=== PATIENT | female | born 1940 | race Caucasian/White ===

== ENCOUNTER 2017-03-12 02:12 | Inpatient (IN) | payer OTHER ==
[2017-03-12] MEDS ORDERED: NS 1,000 ML IV ONE (02:44)
--- NOTE | 2017-03-12 03:24 | CPEKG ---
Heart Rate: 100 RR Interval: 600 P-R Interval: 184 QRSD Interval: 110 QT Interval: 360 QTC Interval: 465 P [place]: 50 QRS [place]: -44 T Wave [place]: 82 EKG Severity - ABNORMAL ECG - EKG Impression: SINUS TACHYCARDIA EKG Impression: LEFT ANTERIOR FASCICULAR BLOCK Electronically Signed By: Aparna Rock 13-Mar-2017 06:20:06
[2017-03-12 03:28] LABS: % IMMATURE GRANULYOCYTES 0.6 % (0.0-1.1); ABSOLUTE IMMATURE GRANULOCYTES 0.07 10^3/uL (0.00-0.10); ADD DIFF? NO; ADD MORPH? NO; ADD SCAN? NO; ATYPICAL LYMPHOCYTE FLAG 0 (0-99); FRAGMENT RBC FLAG 0 (0-99); HEMATOCRIT 35.4 % (38.0-47.0); HEMOGLOBIN 11.5 g/dL (12.6-16.3); LEFT SHIFT FLG 0 (0-99); LIPEMIA HEMOLYSIS FLAG 80 (0-99); MEAN CELL HEMOGLOBIN 31.4 pg (27.9-34.1); MEAN CELL HEMOGLOBIN CONCENTR. 32.5 g/dL (32.4-36.7); MEAN CELL VOLUME 96.7 fL (81.5-99.8); MEAN PLATELET VOLUME 10.7 fL (8.7-11.7); PLATELET CLUMPS FLAG 20 (0-99); PLATELET COUNT 201 10^3/uL (150-400); RED BLOOD CELL COUNT 3.66 10^6/uL (4.18-5.33); RED CELL DISTRIBUTION WIDTH 14.5 % (11.5-15.2)
[2017-03-12 03:41] LABS: ALANINE AMINOTRANSFERASE 27 IU/L (9-52); ALBUMIN 3.6 g/dL (3.5-5.0); ALKALINE PHOSPHATASE 44 IU/L (38-126); ANION GAP 15 mEq/L (8-16); ASPARTATE AMINOTRANSFERASE 22 IU/L (14-46); BILIRUBIN,TOTAL 0.7 mg/dL (0.1-1.4); BILIRUBIN-CONJUGATED 0.4 mg/dL (0.0-0.5); BILIRUBIN-UNCONJUGATED 0.3 mg/dL (0.0-1.1); CALCIUM 9.6 mg/dL (8.5-10.4); CARBON DIOXIDE 19 mEq/l (22-31); CHLORIDE 108 mEq/L (97-110); CREATININE 1.4 mg/dL (0.6-1.0); GLOMERULAR FILTRATION RATE 37; GLUCOSE 219 mg/dL (70-100); SODIUM 142 mEq/L (134-144); TOTAL PROTEIN 5.8 g/dL (6.3-8.2)
[2017-03-12 04:17] LABS: COLOR YELLOW; LEUKOCYTE ESTERASE,URINE 3+ (NEGATIVE); NITRITE,URINE NEGATIVE (NEGATIVE)
[2017-03-12 04:25] LABS: BACTERIA TRACE /hpf (NONE SEEN); MUCUS TRACE /lpf (NONE-1+); RBC,URINE 50-182 /hpf (0-3); WBC,URINE 50-182 /hpf (0-3)
[2017-03-12] MEDS ORDERED: ONDANSETRON 4 MG/2 ML VIAL IVP PRN (05:00)
[2017-03-12] MEDS ORDERED: ACETAMINOPHEN 325 MG TAB PO PRN (05:00)
[2017-03-12] MEDS ORDERED: ONDANSETRON DISINTEGRATING 4 MG TAB PO PRN (05:00)
--- NOTE | 2017-03-12 05:11 | PDGENHP ---
History and Physical - Chief Complaint Acute weakness - History of Present Illness PCP: Dr. Marin Primary fleet operations manager: Dr. Hyde Primary urologist: Dr. Chapa HPI: 76 yo F p/w acute weakness characterized as generalized w/ associated inability to ambulate, associated w/ ongoing hematuria and tremulousness ( exacerbated by standing). She reports onset of symptoms on the evening prior to presentation, following a lengthy trip down to [facility] to see her PCP. She got stuck in [place] hour traffic on her return, and did not have adequate PO intake of fluids. She ate dinner, began having difficulty ambulating, and went to bed. When she awoke in the middle of the night and attempted to stand to get to the bathroom, she reports her strength was so diminished that she could barely walk, and she called EMS. She has been off of Abx (unsure which kind, was taking bid-tid PO) for approx 6 days, and, despite adhering to the instructions, she has continued to experience macroscopic hematuria, but no dysuria/nausea/diarrhea. Otherwise, no other medication changes. History Information - Allergies/Home Medication List Allergies/Adverse Reactions: No Known Allergies Allergy (Unverified 03/12/17 02:47) I have personally reviewed and updated: family history, medical history, social history, surgical history - Past Medical History atrial fibrillation (paroxysmal), diabetes type 2, hypertension Additional medical history: hypothyroidism. depression. severe . CKD stage III w/ baseline CR1.2-1.4. nephrolithiasis. recent UTI - Surgical History Additional surgical history: appy. perc neph. SBO - Family History Additional family history: no recent sick family contacts - Social History Smoking Status: Former smoker Alcohol Use: None Drug Use: None Additional social history: lives in [place] Review of Systems Review of Systems: Constitutional: Reports: weakness Genitourinary: Reports: hematuria Physical Exam Physical Exam: Temp Pulse Resp BP Pulse Ox 36.8 C 90 18 107/74 95 03/12/17 02:22 03/12/17 04:00 03/12/17 04:00 03/12/17 04:00 03/12/17 04:00 Constitutional: no apparent distress, not in pain, other (elderly appearing), No uncomfortable Eyes: PERRL, anicteric sclera, EOMI Ears, Nose, Mouth, Throat: moist mucous membranes, hearing normal, ears appear normal, no oral mucosal ulcers Cardiovascular: systolic murmur (III/ at RSB), No irregularly irregular, No tachycardia, No edema Respiratory: no respiratory distress, no rales or rhonchi, clear to auscultation Gastrointestinal: normoactive bowel sounds, soft, non-tender abdomen, no palpable masses, No distension Genitourinary: no bladder fullness, no bladder tenderness, other (no CVA tenderness) Skin: warm, normal color, no rashes or abrasions, no fluctuance, no induration, No mottled Neurologic: AAOx3, sensation intact bilaterally, No weakness (motor 5/5 bilat UE /LE) Psychiatric: interacting appropriately, not anxious, flat affect, No agitated Lab Data & Imaging Review 03/12/17 03:15 03/12/17 03:15 WBC 12.28 10^3/uL (3.80-9.50) H 03/12/17 03:15 RBC 3.66 10^6/uL (4.18-5.33) L 03/12/17 03:15 Hgb 11.5 g/dL (12.6-16.3) L 03/12/17 03:15 Hct 35.4 % (38.0-47.0) L 03/12/17 03:15 MCV 96.7 fL (81.5-99.8) 03/12/17 03:15 MCH 31.4 pg (27.9-34.1) 03/12/17 03:15 MCHC 32.5 g/dL (32.4-36.7) 03/12/17 03:15 RDW 14.5 % (11.5-15.2) 03/12/17 03:15 Plt Count 201 10^3/uL (150-400) 03/12/17 03:15 MPV 10.7 fL (8.7-11.7) 03/12/17 03:15 Neut % (Auto) 91.4 % (39.3-74.2) H 03/12/17 03:15 Lymph % (Auto) 3.2 % (15.0-45.0) L 03/12/17 03:15 [place] % (Auto) 3.7 % (4.5-13.0) L 03/12/17 03:15 Eos % (Auto) 0.6 % (0.6-7.6) 03/12/17 03:15 Baso % (Auto) 0.5 % (0.3-1.7) 03/12/17 03:15 Nucleat RBC Rel Count 0.0 % (0.0-0.2) 03/12/17 03:15 Absolute Neuts (auto) 11.23 10^3/uL (1.70-6.50) H 03/12/17 03:15 Absolute Lymphs (auto) 0.39 10^3/uL (1.00-3.00) L 03/12/17 03:15 Absolute Monos (auto) 0.46 10^3/uL (0.30-0.80) 03/12/17 03:15 Absolute Eos (auto) 0.07 10^3/uL (0.03-0.40) 03/12/17 03:15 Absolute Basos (auto) 0.06 10^3/uL (0.02-0.10) 03/12/17 03:15 Absolute Nucleated RBC 0.00 10^3/uL (0-0.01) 03/12/17 03:15 Immature Gran % 0.6 % (0.0-1.1) 03/12/17 03:15 Immature Gran # 0.07 10^3/uL (0.00-0.10) 03/12/17 03:15 Sodium 142 mEq/L (134-144) 03/12/17 03:15 Potassium 4.0 mEq/L (3.5-5.2) 03/12/17 03:15 Chloride 108 mEq/L (97-110) 03/12/17 03:15 Carbon Dioxide 19 mEq/l (22-31) L 03/12/17 03:15 Anion Gap 15 mEq/L (8-16) 03/12/17 03:15 BUN 55 mg/dL (7-23) H 03/12/17 03:15 Creatinine 1.4 mg/dL (0.6-1.0) H 03/12/17 03:15 Estimated GFR 37 03/12/17 03:15 Glucose 219 mg/dL (70-100) H 03/12/17 03:15 Calcium 9.6 mg/dL (8.5-10.4) 03/12/17 03:15 Total Bilirubin 0.7 mg/dL (0.1-1.4) 03/12/17 03:15 Conjugated Bilirubin 0.4 mg/dL (0.0-0.5) 03/12/17 03:15 Unconjugated Bilirubin 0.3 mg/dL (0.0-1.1) 03/12/17 03:15 AST 22 IU/L (14-46) 03/12/17 03:15 ALT 27 IU/L (9-52) 03/12/17 03:15 Alkaline Phosphatase 44 IU/L (38-126) 03/12/17 03:15 Troponin I 0.030 ng/mL (0.000-0.034) 03/12/17 03:15 Total Protein 5.8 g/dL (6.3-8.2) L 03/12/17 03:15 Albumin 3.6 g/dL (3.5-5.0) 03/12/17 03:15 Urine Color YELLOW 03/12/17 04:00 Urine Appearance MODERATELY TURBID 03/12/17 04:00 Urine pH 5.0 (5.0-7.5) 03/12/17 04:00 Ur Specific [place] 1.012 (1.002-1.030) 03/12/17 04:00 Urine Protein 1+ (NEGATIVE) H 03/12/17 04:00 Urine Ketones NEGATIVE (NEGATIVE) 03/12/17 04:00 Urine Blood 3+ (NEGATIVE) H 03/12/17 04:00 Urine Nitrate NEGATIVE (NEGATIVE) 03/12/17 04:00 Urine Bilirubin NEGATIVE (NEGATIVE) 03/12/17 04:00 Urine Urobilinogen NEGATIVE EU (0.2-1.0) 03/12/17 04:00 Ur Leukocyte Esterase 3+ (NEGATIVE) H 03/12/17 04:00 Urine RBC 50-182 /hpf (0-3) H 03/12/17 04:00 Urine WBC 50-182 /hpf (0-3) H 03/12/17 04:00 Ur Epithelial Cells TRACE /lpf (NONE-1+) 03/12/17 04:00 Urine Bacteria TRACE /hpf (NONE SEEN) H 03/12/17 04:00 Urine Mucus TRACE /lpf (NONE-1+) 03/12/17 04:00 Urine Glucose NEGATIVE (NEGATIVE) 03/12/17 04:00 Visualized and Interpreted EKG results: Yes EKG Interpretation: Positive for: other (sinus tach w/ LAFB) Assessment & Plan Assessment: 76 yo F p/w generalized weakness in setting of UTI, PIPER on CKD Plan: 1. UTI. Acute, new problem, further w/u indicated. Reviewed outside records, including recent 02/26/17 micro w/ fluoroquinalone/bactrim/augmentin resistant E. coli, positive UA and leukocytosis and hematuria, probably persistent and incompletely treated recently - order outside records (UCx from Dr. Chapa) - send UCx, BCx - repeat CBC at noon - d/w Dr. Rock, we both agree that CTX initial tx, gauge response, continue 2. PIPER on CKD stage III. Evidenced by elevated BUN 55, likely 2/2 hypovolemia in setting of infxn, likely contributing to gen weakness - cont NS 150/hr, repeat Cr at noon 3. Severe . Chronic, no signs of volume overload 4. Paroxysmal Afib. Reviewed outside records (DC summary by Dr. Lenore Kulkarni , reports patient is on coreg and eliquis), continue Rx, monitor for RVR on tele 5. Metabolic acidosis. Acute, suspect 2/2 combination of PIPER, CKD, and hypovolemia, give NS and repeat labs 6. DM2. Chronic, hold metformin/sulfonureas until repeat labs at noon, place on ISS Diet. Regular per patient request PPx. High risk, on eliquis Code. Full, MDPOA is Leanne Smitho. ADD 03/13, pending stability of above, patient requiring PT/OT evals, may require SNF if unable to safely ambulate/complete ADLs
[2017-03-12] MEDS: NS 1,000 ML IV SCH ×2 (06:47→16:45)
[2017-03-12] MEDS: CARVEDILOL 25 MG TAB PO SCH ×3 (06:51→19:00)
[2017-03-12] MEDS: APIXABAN 5 MG TAB PO SCH ×3 (06:51→19:49)
--- NOTE | 2017-03-12 07:51 | EDPHY ---
H & P Stated Complaint: Weak, unable to stand. Time Seen by Provider: 03/12/17 02:46 HPI/ROS: HPI The patient presents with weakness which she feels mostly in both of her legs which has been getting progressively worse over the last 2 days to the point now that she is having difficulty walking because of the weakness. At baseline , she uses a walker and can walk about 1 block at a time. She is brought in by ambulance today after she was attempting to sit in her arm chair and she slid to the floor with her legs giving out under her. Today, she went to a doctor's appointment and was in the car for a while, she feels this exacerbated her weakness. Tonight, she got up to use the bathroom when she was going back to her arm chair where she sleeps she slid and fell. She did not hit her head. She denies any pain. She does not have any bowel or bladder incontinence. She has history of similar in September of this year likely related to deconditioning for an admission for kidney stones. She did go to some sort of assisted living facility but has been at her own house since November.. REVIEW OF SYSTEMS Constitutional: No fever, no chills. Eyes: No discharge. ENT: No sore throat. Cardiovascular: No chest pain, no palpitations. Respiratory: No cough, no shortness of breath. Gastrointestinal: No abdominal pain, no vomiting. Genitourinary: No hematuria. Musculoskeletal: No back pain. Skin: No rashes. Neurological: No headache. PMHx: Moderate to severe aortic stenosis, paroxysmal atrial fibrillation, history of kidney stones, hypertension, hypothyroidism, diabetes Soc Hx: Lives at home by herself, neighbors do check in on her PHYSICAL General Appearance: Alert, no distress Eyes: Pupils equal and round no pallor or injection ENT, Mouth: Mucous membranes dry Respiratory: There are no retractions, lungs are clear to auscultation Cardiovascular: Regular rate and rhythm, holosystolic murmur Gastrointestinal: Abdomen is soft and non-tender, no masses, bowel sounds normal Neurological: A&O, 5/5 strength of upper and lower extremities which is symmetric, sensation is intact to light touch Skin: Warm and dry, no rashes Musculoskeletal: Neck is supple non tender Extremities: symmetrical, full range of motion Psychiatric: Patient is oriented X 3, there is no agitation Source: Patient, EMS Exam Limitations: No limitations - Personal History Current Tetanus/Diphtheria Vaccine: Unsure Current Tetanus Diphtheria and Acellular Pertussis (TDAP): Unsure - Medical/Surgical History Hx Asthma: No Hx Chronic Respiratory Disease: No Hx Diabetes: No Hx Cardiac Disease: No Hx Renal Disease: No Hx Cirrhosis: No Hx Alcoholism: No Hx HIV/AIDS: No Hx Splenectomy or Spleen Trauma: No Other PMH: Hyperlipidemia, Diabetes 2, kidney stone sx. - Social History Smoking Status: Former smoker Constitutional: Initial Vital Signs Temperature (C) 36.8 C 03/12/17 02:22 Heart Rate 100 03/12/17 02:22 Respiratory Rate 18 03/12/17 02:22 Blood Pressure 113/54 L 03/12/17 02:22 O2 Sat (%) 92 03/12/17 02:22 O2 Delivery Mode Nasal Cannula O2 (L/minute) 2 Allergies/Adverse Reactions: No Known Allergies Allergy (Unverified 03/12/17 02:47) Medical Decision Making - Diagnostics EKG Interpretation: EKG: Complete interpretation has been separately recorded in the [facility] archive. Summary impression: Heart rate of 100 with left anterior fascicular block Differential Diagnosis: This is a 76-year-old female with past medical history including aortic stenosis , proximal atrial fibrillation, kidney stones, hypertension, hypothyroidism who presents brought in by ambulance after a fall which she attributes to weakness which she feels in both of her legs. On exam, she is generally well-appearing, vital signs show slightly low blood pressures, mucous membranes are dry, her strength is full on exam. Differential diagnosis includes electrolyte disturbance, dehydration, anemia, deconditioning, less likely CVA given her symptoms are bilateral. In the emergency department, patient was given 1 L of IV fluid for presumed volume depletion. Labs were checked and did reveal elevated BUN and creatinine. UA shows possible urinary tract infection. When mentioned this to the patient, she says she has an appointment with Urology today because she was concerned that she may have a urinary tract infection. She was given a dose of ceftriaxone for this. The case was discussed with the hospitalist Dr. Bird Asher who will admit the patient. - Data Points Laboratory Results: Laboratory Results 03/12/17 03:15 03/12/17 03:15 03/12/17 03/12/17 03/12/17 04:00 03:15 03:15 WBC RBC Hgb Hct MCV MCH MCHC RDW Plt Count MPV Neut % (Auto) Lymph % (Auto) [place] % (Auto) Eos % (Auto) Baso % (Auto) Nucleat RBC Rel Count Absolute Neuts (auto) Absolute Lymphs (auto) Absolute Monos (auto) Absolute Eos (auto) Absolute Basos (auto) Absolute Nucleated RBC Immature Gran % Immature Gran # Sodium 142 mEq/L mEq/L (134-144) Potassium 4.0 mEq/L mEq/L (3.5-5.2) Chloride 108 mEq/L mEq/L (97-110) Carbon Dioxide 19 mEq/l L mEq/l (22-31) Anion Gap 15 mEq/L mEq/L (8-16) BUN 55 mg/dL H mg/dL (7-23) Creatinine 1.4 mg/dL H mg/dL (0.6-1.0) Estimated GFR 37 Glucose 219 mg/dL H mg/dL (70-100) Calcium 9.6 mg/dL mg/dL (8.5-10.4) Total Bilirubin 0.7 mg/dL mg/dL (0.1-1.4) Conjugated Bilirubin 0.4 mg/dL mg/dL (0.0-0.5) Unconjugated Bilirubin 0.3 mg/dL mg/dL (0.0-1.1) AST 22 IU/L IU/L (14-46) ALT 27 IU/L IU/L (9-52) Alkaline Phosphatase 44 IU/L IU/L (38-126) Troponin I 0.030 ng/mL ng/mL (0.000-0.034) Total Protein 5.8 g/dL L g/dL (6.3-8.2) Albumin 3.6 g/dL g/dL (3.5-5.0) TSH 0.316 uIU/mL L uIU/mL (0.465-4.680) Urine Color YELLOW Urine Appearance MODERATELY TURBID Urine pH 5.0 (5.0-7.5) Ur Specific [place] 1.012 (1.002-1.030) Urine Protein 1+ H (NEGATIVE) Urine Ketones NEGATIVE (NEGATIVE) Urine Blood 3+ H (NEGATIVE) Urine Nitrate NEGATIVE (NEGATIVE) Urine Bilirubin NEGATIVE (NEGATIVE) Urine Urobilinogen NEGATIVE EU EU (0.2-1.0) Ur Leukocyte Esterase 3+ H (NEGATIVE) Urine RBC 50-182 /hpf H /hpf (0-3) Urine WBC 50-182 /hpf H /hpf (0-3) Ur Epithelial Cells TRACE /lpf /lpf (NONE-1+) Urine Bacteria TRACE /hpf H /hpf (NONE SEEN) Urine Mucus TRACE /lpf /lpf (NONE-1+) Urine Glucose NEGATIVE (NEGATIVE) 03/12/17 03:15 WBC 12.28 10^3/uL H 10^3/uL (3.80-9.50) RBC 3.66 10^6/uL L 10^6/uL (4.18-5.33) Hgb 11.5 g/dL L g/dL (12.6-16.3) Hct 35.4 % L % (38.0-47.0) MCV 96.7 fL fL (81.5-99.8) MCH 31.4 pg pg (27.9-34.1) MCHC 32.5 g/dL g/dL (32.4-36.7) RDW 14.5 % % (11.5-15.2) Plt Count 201 10^3/uL 10^3/uL (150-400) MPV 10.7 fL fL (8.7-11.7) Neut % (Auto) 91.4 % H % (39.3-74.2) Lymph % (Auto) 3.2 % L % (15.0-45.0) [place] % (Auto) 3.7 % L % (4.5-13.0) Eos % (Auto) 0.6 % % (0.6-7.6) Baso % (Auto) 0.5 % % (0.3-1.7) Nucleat RBC Rel Count 0.0 % % (0.0-0.2) Absolute Neuts (auto) 11.23 10^3/uL H 10^3/uL (1.70-6.50) Absolute Lymphs (auto) 0.39 10^3/uL L 10^3/uL (1.00-3.00) Absolute Monos (auto) 0.46 10^3/uL 10^3/uL (0.30-0.80) Absolute Eos (auto) 0.07 10^3/uL 10^3/uL (0.03-0.40) Absolute Basos (auto) 0.06 10^3/uL 10^3/uL (0.02-0.10) Absolute Nucleated RBC 0.00 10^3/uL 10^3/uL (0-0.01) Immature Gran % 0.6 % % (0.0-1.1) Immature Gran # 0.07 10^3/uL 10^3/uL (0.00-0.10) Sodium Potassium Chloride Carbon Dioxide Anion Gap BUN Creatinine Estimated GFR Glucose Calcium Total Bilirubin Conjugated Bilirubin Unconjugated Bilirubin AST ALT Alkaline Phosphatase Troponin I Total Protein Albumin TSH Urine Color Urine Appearance Urine pH Ur Specific [place] Urine Protein Urine Ketones Urine Blood Urine Nitrate Urine Bilirubin Urine Urobilinogen Ur Leukocyte Esterase Urine RBC Urine WBC Ur Epithelial Cells Urine Bacteria Urine Mucus Urine Glucose Medications Given: Apixaban (Eliquis) 5 mg PO BID [facility] Stop: 09/08/17 06:44 Last Admin: 03/12/17 07:47 Dose: Not Given Carvedilol (Coreg) 25 mg PO BIDMEAL HARI Stop: 09/08/17 06:44 Last Admin: 03/12/17 07:47 Dose: Not Given Sodium Chloride (Ns) 1,000 mls @ 150 mls/hr IV CONT HARI Stop: 09/08/17 04:59 Last Admin: 03/12/17 06:47 Dose: 1,000 mls Discontinued Medications Sodium Chloride (Ns) 1,000 mls @ 0 mls/hr IV ONCE ONE; Wide Open PRN Reason: Protocol Stop: 03/12/17 02:45 Last Admin: 03/12/17 03:31 Dose: 1,000 mls Ceftriaxone Sodium/Dextrose (Rocephin 1 Gm (Premix)) 50 mls @ 100 mls/hr IV EDNOW ONE PRN Reason: Protocol Stop: 03/12/17 05:17 Last Admin: 03/12/17 05:38 Dose: 50 mls Departure - Departure Disposition: [facility] Acute Clinical Impression: Dehydration, Weakness Condition: Fair
[2017-03-12] MEDS ORDERED: Herbals/Supplements -Info Only PO SCH (12:00)
[2017-03-12 12:10] LABS: % IMMATURE GRANULYOCYTES 0.4 % (0.0-1.1); ABSOLUTE IMMATURE GRANULOCYTES 0.04 10^3/uL (0.00-0.10); ADD DIFF? NO; ADD MORPH? NO; ADD SCAN? NO; ATYPICAL LYMPHOCYTE FLAG 0 (0-99); FRAGMENT RBC FLAG 10 (0-99); HEMATOCRIT 30.8 % (38.0-47.0); LEFT SHIFT FLG 0 (0-99); LIPEMIA HEMOLYSIS FLAG 80 (0-99); MEAN CELL HEMOGLOBIN 31.1 pg (27.9-34.1); MEAN CELL HEMOGLOBIN CONCENTR. 32.5 g/dL (32.4-36.7); MEAN CELL VOLUME 95.7 fL (81.5-99.8); MEAN PLATELET VOLUME 10.5 fL (8.7-11.7); PLATELET CLUMPS FLAG 0 (0-99); PLATELET COUNT 190 10^3/uL (150-400); RED BLOOD CELL COUNT 3.22 10^6/uL (4.18-5.33); RED CELL DISTRIBUTION WIDTH 14.6 % (11.5-15.2)
[2017-03-12 12:32] LABS: ANION GAP 10 mEq/L (8-16); CARBON DIOXIDE 21 mEq/l (22-31); CHLORIDE 106 mEq/L (97-110); CREATININE 1.4 mg/dL (0.6-1.0); GLOMERULAR FILTRATION RATE 37; GLUCOSE 171 mg/dL (70-100); POTASSIUM 3.4 mEq/L (3.5-5.2); SODIUM 137 mEq/L (134-144)
[2017-03-12] MEDS: buPROPion SR 100 MG TAB PO SCH (13:27)
[2017-03-12] MEDS: ARIPiprazole 10 MG TAB PO SCH (13:27)
[2017-03-12] MEDS: ATORVASTATIN CALCIUM 20 MG TAB PO SCH (13:27)
[2017-03-12] MEDS: LEVOTHYROXINE 125 MCG TAB PO SCH (14:06)
--- NOTE | 2017-03-12 14:14 | HOSPPROG ---
Hospitalist Progress Note Assessment/Plan: patient seen and examined continue IV ceftriaxone and IV fluids await cultures Objective: Vital Signs Temp Pulse Resp BP Pulse Ox 37.1 C 88 22 H 109/59 L 93 03/12/17 12:28 03/12/17 12:28 03/12/17 12:28 03/12/17 12:28 03/12/17 12:28 Laboratory Results 03/12/17 11:52 03/12/17 11:52 03/11/17 03/12/17 03/13/17 05:59 05:59 05:59 Intake Total 1050 450 Output Total 250 Balance 1050 200 ICD10 Worksheet Patient Problems: Problems Problem Status Onset CKD (chronic kidney disease), stage III Acute Dehydration Acute Weakness Acute Aortic stenosis Acute Elevated troponin Acute Staghorn renal calculus Acute Weakness Acute
[2017-03-12] MEDS: MELATONIN 3 MG TAB PO PRN (20:54)
[2017-03-13] MEDS ORDERED: POTASSIUM CL 20 MEQ TAB PO ONE ×2 (08:51→13:45)
[2017-03-13] MEDS: APIXABAN 5 MG TAB PO SCH ×2 (09:49→20:49)
[2017-03-13] MEDS: ATORVASTATIN CALCIUM 20 MG TAB PO SCH (09:49)
[2017-03-13] MEDS: buPROPion SR 100 MG TAB PO SCH (09:49)
[2017-03-13] MEDS: ARIPiprazole 10 MG TAB PO SCH (09:49)
[2017-03-13] MEDS: LEVOTHYROXINE 125 MCG TAB PO SCH (11:07)
[2017-03-13] MEDS: CARVEDILOL 25 MG TAB PO SCH ×2 (11:15→18:36)
--- NOTE | 2017-03-13 11:25 | HOSPPROG ---
Hospitalist Progress Note Assessment/Plan: * urinary tract infection * continue IV ceftriaxone * white blood cell count better but not normal * still with some symptoms * cultures negative so far but recently on antibiotics * chronic kidney disease * at baseline * paroxysmal atrial fibrillation * Eliquis * type 2 diabetes * restart glipizide but hold metformin * hypertension Subjective: feels better but still little bit dizzy Objective: Vital Signs Temp Pulse Resp BP Pulse Ox 36.7 C 77 17 94/50 L 92 03/13/17 11:08 03/13/17 11:08 03/13/17 11:08 03/13/17 11:08 03/13/17 11:08 Laboratory Results 03/12/17 11:52 03/12/17 11:52 03/12/17 03/13/17 03/14/17 05:59 05:59 05:59 Intake Total 1050 1748 360 Output Total 1550 500 Balance 1050 198 -140 - Physical Exam Constitutional: no apparent distress, appears nourished, not in pain Eyes: PERRL, anicteric sclera Ears, Nose, Mouth, Throat: moist mucous membranes, hearing normal Cardiovascular: regular rate and rhythym Respiratory: no respiratory distress, no rales or rhonchi, clear to auscultation Skin: warm Neurologic: AAOx3 Psychiatric: interacting appropriately, not anxious, not encephalopathic, thought process linear ICD10 Worksheet Patient Problems: Problems Problem Status Onset CKD (chronic kidney disease), stage III Acute Dehydration Acute Weakness Acute Aortic stenosis Acute Elevated troponin Acute Staghorn renal calculus Acute Weakness Acute
--- NOTE | 2017-03-13 20:49 | HOSPPROG ---
Hospitalist Progress Note Assessment/Plan: x cover note notified by RN that pt fell on the way to chair after using the bathroom. Admits to being "cocky" while trying to ambulate without help. Hit head on floor. No LOC O/ bleeding from posterior scalp. wounds irrigated without any obvious large lac needing sutures a/p s/p slip and fall pt is anticoagulated -stat head ct -monitor mental status with neuro checks over night Objective: Vital Signs Temp Pulse Resp BP Pulse Ox 36.7 C 78 16 114/59 L 98 03/13/17 20:35 03/13/17 20:35 03/13/17 20:35 03/13/17 20:35 03/13/17 20:35 03/12/17 03/13/17 03/14/17 05:59 05:59 05:59 Intake Total 200 Balance 200 ICD10 Worksheet Patient Problems: Problems Problem Status Onset Staghorn renal calculus Acute Aortic stenosis Acute Weakness Acute Elevated troponin Acute CKD (chronic kidney disease), stage III Acute Dehydration Acute Weakness Acute
[2017-03-13] MEDS: MELATONIN 3 MG TAB PO PRN (23:03)
[2017-03-14 04:42] LABS: % IMMATURE GRANULYOCYTES 0.4 % (0.0-1.1); ABSOLUTE IMMATURE GRANULOCYTES 0.03 10^3/uL (0.00-0.10); ADD DIFF? NO; ADD MORPH? NO; ADD SCAN? NO; ATYPICAL LYMPHOCYTE FLAG 0 (0-99); FRAGMENT RBC FLAG 0 (0-99); HEMATOCRIT 30.4 % (38.0-47.0); HEMOGLOBIN 9.7 g/dL (12.6-16.3); LEFT SHIFT FLG 0 (0-99); LIPEMIA HEMOLYSIS FLAG 80 (0-99); MEAN CELL HEMOGLOBIN CONCENTR. 31.9 g/dL (32.4-36.7); MEAN CELL VOLUME 97.1 fL (81.5-99.8); MEAN PLATELET VOLUME 11.1 fL (8.7-11.7); PLATELET CLUMPS FLAG 0 (0-99); PLATELET COUNT 180 10^3/uL (150-400); RED BLOOD CELL COUNT 3.13 10^6/uL (4.18-5.33); RED CELL DISTRIBUTION WIDTH 14.7 % (11.5-15.2)
[2017-03-14 05:02] LABS: ANION GAP 9 mEq/L (8-16); CALCIUM 8.9 mg/dL (8.5-10.4); CARBON DIOXIDE 24 mEq/l (22-31); CHLORIDE 107 mEq/L (97-110); CREATININE 1.3 mg/dL (0.6-1.0); GLOMERULAR FILTRATION RATE 40; GLUCOSE 128 mg/dL (70-100); POTASSIUM 4.1 mEq/L (3.5-5.2); SODIUM 140 mEq/L (134-144)
[2017-03-14] MEDS: LEVOTHYROXINE 125 MCG TAB PO SCH (06:18)
[2017-03-14] MEDS: buPROPion SR 100 MG TAB PO SCH (08:38)
[2017-03-14] MEDS: ARIPiprazole 10 MG TAB PO SCH (08:38)
[2017-03-14] MEDS: CARVEDILOL 25 MG TAB PO SCH ×2 (08:38→19:04)
[2017-03-14] MEDS: ATORVASTATIN CALCIUM 20 MG TAB PO SCH (08:38)
--- NOTE | 2017-03-14 09:24 | HOSPPROG ---
Hospitalist Progress Note Assessment/Plan: * urinary tract infection * continue IV ceftriaxone * white blood cell count better * cultures negative so far but recently on antibiotics * chronic kidney disease * at baseline * paroxysmal atrial fibrillation * Hold Eliquis today due to recent fall * aortic stenosis * type 2 diabetes * restart glipizide but hold metformin * hypertension * weakness/disposition * This is a 3rd midnight tonight * Will keep in hospital today and reassess tomorrow with physical therapy if she needs rehab versus home with home PT * Try to ambulate more today Subjective: Patient fell overnight hitting her head. She states that she lost her balance Objective: Vital Signs Temp Pulse Resp BP Pulse Ox 36.7 C 74 20 106/65 94 03/14/17 07:24 03/14/17 07:24 03/14/17 07:24 03/14/17 07:24 03/14/17 07:24 Laboratory Results 03/14/17 03:34 03/14/17 03:34 03/13/17 03/14/17 03/15/17 05:59 05:59 05:59 Intake Total 600 400 Output Total 700 Balance -100 400 - Physical Exam Constitutional: no apparent distress, appears nourished, not in pain Eyes: anicteric sclera, EOMI Ears, Nose, Mouth, Throat: moist mucous membranes, hearing normal Cardiovascular: regular rate and rhythym, systolic murmur Respiratory: no respiratory distress, no rales or rhonchi, clear to auscultation Gastrointestinal: normoactive bowel sounds, soft, non-tender abdomen, no palpable masses Skin: warm Neurologic: AAOx3 Psychiatric: interacting appropriately, not anxious, not encephalopathic, thought process linear ICD10 Worksheet Patient Problems: Problems Problem Status Onset CKD (chronic kidney disease), stage III Acute Dehydration Acute Weakness Acute Aortic stenosis Acute Elevated troponin Acute Staghorn renal calculus Acute Weakness Acute
[2017-03-14] MEDS: APIXABAN 5 MG TAB PO SCH ×2 (10:34→20:00)
[2017-03-14] MEDS: POTASSIUM CL 10 MEQ TAB PO SCH (11:12)
[2017-03-14] MEDS: PIOGLITAZONE HCL 15 MG TAB PO SCH (11:12)
--- NOTE | 2017-03-14 17:08 | ASMTCMCOM ---
CM Note CM Note Notes: Patient admitted with weakness -- diagnosed with UTI. Currently on IV abx and fluids. Per PT/OT is weak and not at baseline -- they will continue to work with and assess patient daily. Depending on progress, patient may need HC or SNF at discharge. Spoke with patient who is shocked at how weak this infection has made her. She is hopeful that she will recover enough to be able to go home upon discharge. She requests that CM check in again before making a d/c plan. Date Signed: 03/13/2017 12:03 PM Electronically Signed By:Raegan Stark
[2017-03-14] MEDS: MELATONIN 3 MG TAB PO PRN (21:07)
[2017-03-15] MEDS: LEVOTHYROXINE 125 MCG TAB PO SCH (07:32)
--- NOTE | 2017-03-15 08:10 | HOSPPROG ---
Hospitalist Progress Note Assessment/Plan: 76-year-old with weakness and found to have urinary tract infection improving on antibiotics. WBC has declined. Cultures are negative it she was recent On antibiotics. patient new to me today -urinary tract infection * continue IV ceftriaxone * white blood cell count better[place] [id number] * cultures negative so far but recently on antibiotics -chronic kidney disease * at baseline; creatinine 1.3 -paroxysmal atrial fibrillation * Hold Eliquis today due to recent fall * will value 8 for PT for fall risk and restart Eliquis when appropriate -aortic stenosis - type 2 diabetes * restart glipizide but hold metformin -hypertension; normal weakness/disposition * This is a 3rd midnight tonight * Will keep in hospital today and reassess tomorrow with physical therapy if she needs rehab versus home with home PT * Try to ambulate more today * patient has a bed at [facility] when available and when she is able Subjective: no complaints no chest pain shortness of breath dysuria fever chills nausea vomiting Objective: Vital Signs Temp Pulse Resp BP Pulse Ox 36.5 C 67 14 131/69 H 95 03/15/17 04:00 03/15/17 04:00 03/15/17 04:00 03/15/17 04:00 03/15/17 04:00 Laboratory Results 03/14/17 03:34 03/14/17 03:34 03/14/17 03/15/17 03/16/17 05:59 05:59 05:59 Intake Total 600 2210 Output Total 700 Balance -100 2210 Laboratory Tests 09/02/16 09/13/16 09/27/16 12:15 06:03 05:44 Hgb Creatinine 1.3 H 1.2 H 1.2 H 09/28/16 09/28/16 03/12/17 03:15 21:10 03:15 Hgb 11.5 L Creatinine 1.2 H 1.2 H 03/12/17 03/12/17 03/14/17 03:15 11:52 03:34 Hgb 9.7 L Creatinine 1.4 H 1.4 H 03/14/17 03:34 Hgb Creatinine 1.3 H - Time Spent With Patient Time Spent with Patient: greater than 35 minutes Time Spent with Patient: Greater than 35 minutes spent on this patients care, greater than 50% of time spent counseling, educating, and coordinating care regarding the above mentioned plan. - Pending Discharge Pending Discharge Within 24 Hours: Yes Pending Discharge Date: 03/16/17 Pending Discharge Time: 11:00 - Physical Exam Constitutional: no apparent distress Eyes: PERRL Ears, Nose, Mouth, Throat: moist mucous membranes, hearing normal Cardiovascular: systolic murmur, irregularly irregular Respiratory: no respiratory distress, no rales or rhonchi, clear to auscultation Gastrointestinal: normoactive bowel sounds, soft, non-tender abdomen, no palpable masses Genitourinary: no bladder fullness Skin: warm Neurologic: AAOx3, CN II-XII Intact ICD10 Worksheet Patient Problems: Problems Problem Status Onset Staghorn renal calculus Acute Aortic stenosis Acute Weakness Acute Elevated troponin Acute CKD (chronic kidney disease), stage III Acute Dehydration Acute Weakness Acute
[2017-03-15] MEDS: APIXABAN 5 MG TAB PO SCH ×2 (09:00→19:54)
[2017-03-15] MEDS: buPROPion SR 100 MG TAB PO SCH (09:02)
[2017-03-15] MEDS: ARIPiprazole 10 MG TAB PO SCH (09:03)
[2017-03-15] MEDS: ATORVASTATIN CALCIUM 20 MG TAB PO SCH (09:03)
[2017-03-15] MEDS: CARVEDILOL 25 MG TAB PO SCH ×2 (09:03→18:15)
--- NOTE | 2017-03-15 11:53 | ASMTCMCOM ---
CM Note CM Note Notes: Wednesday03/15/2017 Case Management Note: Met w/patient, informed of acceptance to [facility] facility. Pt in agreement w/placement. Case Management d/c poc: [facility] when medically stable. Due to 3 midnight requirement, pt needs to stay tonight. Case Management to follow. Created By:Raegan Roldan On:03/13/2017 12:03 (MT) CM Note Patient admitted with weakness -- diagnosed with UTI. Currently on IV abx and fluids. Per PT/OT is weak and not at baseline -- they will continue to work with and assess patient daily. Depending on progress, patient may need HC or SNF at discharge. Spoke with patient who is shocked at how weak this infection has made her. She is hopeful that she will recover enough to be able to go home upon discharge. She requests that CM check in again before making a d/c plan. Date Signed: 03/15/2017 11:52 AM Electronically Signed By:Nini Ortiz
[2017-03-15] MEDS: PIOGLITAZONE HCL 15 MG TAB PO SCH (18:15)
[2017-03-15] MEDS: POTASSIUM CL 10 MEQ TAB PO SCH (18:16)
[2017-03-16] MEDS: MELATONIN 3 MG TAB PO PRN (01:13)
[2017-03-16 04:46] LABS: % IMMATURE GRANULYOCYTES 0.8 % (0.0-1.1); ABSOLUTE IMMATURE GRANULOCYTES 0.05 10^3/uL (0.00-0.10); ADD DIFF? NO; ADD MORPH? NO; ADD SCAN? NO; ATYPICAL LYMPHOCYTE FLAG 0 (0-99); FRAGMENT RBC FLAG 0 (0-99); HEMATOCRIT 31.9 % (38.0-47.0); HEMOGLOBIN 10.2 g/dL (12.6-16.3); LEFT SHIFT FLG 0 (0-99); LIPEMIA HEMOLYSIS FLAG 80 (0-99); MEAN CELL HEMOGLOBIN 31.2 pg (27.9-34.1); MEAN CELL VOLUME 97.6 fL (81.5-99.8); MEAN PLATELET VOLUME 10.8 fL (8.7-11.7); PLATELET CLUMPS FLAG 0 (0-99); PLATELET COUNT 204 10^3/uL (150-400); RED BLOOD CELL COUNT 3.27 10^6/uL (4.18-5.33); RED CELL DISTRIBUTION WIDTH 14.5 % (11.5-15.2)
[2017-03-16 04:58] LABS: ANION GAP 6 mEq/L (8-16); CALCIUM 8.9 mg/dL (8.5-10.4); CARBON DIOXIDE 27 mEq/l (22-31); CHLORIDE 106 mEq/L (97-110); CREATININE 1.3 mg/dL (0.6-1.0); GLOMERULAR FILTRATION RATE 40; GLUCOSE 106 mg/dL (70-100); POTASSIUM 4.2 mEq/L (3.5-5.2); SODIUM 139 mEq/L (134-144)
[2017-03-16] MEDS: LEVOTHYROXINE 125 MCG TAB PO SCH (07:05)
[2017-03-16] MEDS: POTASSIUM CL 10 MEQ TAB PO SCH (10:47)
[2017-03-16] MEDS: ARIPiprazole 10 MG TAB PO SCH (10:48)
[2017-03-16] MEDS: APIXABAN 5 MG TAB PO SCH (10:48)
[2017-03-16] MEDS: buPROPion SR 100 MG TAB PO SCH (10:48)
[2017-03-16] MEDS: ATORVASTATIN CALCIUM 20 MG TAB PO SCH (10:48)
[2017-03-16] MEDS: PIOGLITAZONE HCL 15 MG TAB PO SCH (10:48)
[2017-03-16] MEDS: CARVEDILOL 25 MG TAB PO SCH (10:50)
[2017-03-16 12:34] VITALS: TEMP 97.6
--- NOTE | 2017-03-16 15:44 | PDIAF ---
- Diagnosis Code Status: Full Code - Medication Management Discharge Medications: Medications to Continue on Transfer ARIPiprazole [Abilify 10 mg (*)] 10 mg PO DAILY 03/12/17 [Last Taken 03/11/17] Apixaban [Eliquis] 5 mg PO BID 03/12/17 [Last Taken 03/11/17 21:00] Atorvastatin Calcium [Lipitor 20 mg (*)] 20 mg PO DAILY 03/12/17 [Last Taken 01/18] Carvedilol [Coreg (*)] 25 mg PO BIDMEAL 03/12/17 [Last Taken 03/11/17 18:00] Chlorthalidone [Chlorthalidone 25 mg (*)] 25 mg PO DAILY 03/12/17 [Last Taken ] Herbals/Supplements -Info Only 1 ea PO DAILY 03/12/17 [Last Taken Unknown] Levothyroxine [Synthroid 125 mcg (*)] 125 mcg PO DAILY06 03/12/17 [Last Taken ] Melatonin [Melatonin 3 MG (*)] 3 mg PO HS PRN 03/12/17 [Last Taken Unknown] Pioglitazone HCl [Actos 15mg (*)] 15 mg PO DAILY 03/12/17 [Last Taken 03/11/17] Valsartan [Diovan] 320 mg PO DAILY 03/12/17 [Last Taken 03/11/17] amLODIPine BESYLATE [Norvasc 10 mg (*)] 10 mg PO DAILY 03/12/17 [Last Taken 01/18] buPROPion SR [Wellbutrin 100mg SR (*)] 100 mg PO DAILY 03/12/17 [Last Taken 01/18] glipiZIDE XL [Glucotrol Xl 2.5 mg (*)] 2.5 mg PO BID 03/12/17 [Last Taken 21:00] metFORMIN HCL [Glucophage 1000 mg] 1,000 mg PO BIDMEAL 03/12/17 [Last Taken 01/18 18:00] Methylcellulose [Citrucel] 500 mg PO DAILY 03/13/17 [Last Taken Unknown] Potassium Chloride [Klor-Con Sprinkle] 8 meq PO DAILY 03/13/17 [Last Taken 03/12] Discharge Medications: Refer to the Discharge Home Medication list for PRN reason. - Orders Services needed: Registered Nurse, Certified Applications Development Analyst, Physical Therapy, Occupational Therapy Diet Recommendation: no restrictions on diet Diet Texture: Regular Texture Diet - Labs/Radiology CBC Date: 03/23/17 CMP Date: 03/23/17 - Follow Up Care Current Providers and Referrals: MAT ALBRIGHT [Other] - follow up in 2 weeks
--- NOTE | 2017-03-16 16:28 | PDIAF ---
- Diagnosis Code Status: Full Code - Medication Management Discharge Medications: Medications to Continue on Transfer ARIPiprazole [Abilify 10 mg (*)] 10 mg PO DAILY 03/12/17 [Last Taken 03/11/17] Apixaban [Eliquis] 5 mg PO BID 03/12/17 [Last Taken 03/11/17 21:00] Atorvastatin Calcium [Lipitor 20 mg (*)] 20 mg PO DAILY 03/12/17 [Last Taken 01/18] Carvedilol [Coreg (*)] 25 mg PO BIDMEAL 03/12/17 [Last Taken 03/11/17 18:00] Chlorthalidone [Chlorthalidone 25 mg (*)] 25 mg PO DAILY 03/12/17 [Last Taken ] Herbals/Supplements -Info Only 1 ea PO DAILY 03/12/17 [Last Taken Unknown] Levothyroxine [Synthroid 125 mcg (*)] 125 mcg PO DAILY06 03/12/17 [Last Taken ] Melatonin [Melatonin 3 MG (*)] 3 mg PO HS PRN 03/12/17 [Last Taken Unknown] Pioglitazone HCl [Actos 15mg (*)] 15 mg PO DAILY 03/12/17 [Last Taken 03/11/17] Valsartan [Diovan] 320 mg PO DAILY 03/12/17 [Last Taken 03/11/17] amLODIPine BESYLATE [Norvasc 10 mg (*)] 10 mg PO DAILY 03/12/17 [Last Taken 01/18] buPROPion SR [Wellbutrin 100mg SR (*)] 100 mg PO DAILY 03/12/17 [Last Taken 01/18] glipiZIDE XL [Glucotrol Xl 2.5 mg (*)] 2.5 mg PO BID 03/12/17 [Last Taken 21:00] metFORMIN HCL [Glucophage 1000 mg] 1,000 mg PO BIDMEAL 03/12/17 [Last Taken 01/18 18:00] Methylcellulose [Citrucel] 500 mg PO DAILY 03/13/17 [Last Taken Unknown] Potassium Chloride [Klor-Con Sprinkle] 8 meq PO DAILY 03/13/17 [Last Taken 03/12] levOFLOXACIN [Levaquin] 500 mg PO DAILY #3 tablet 03/16/17 [Last Taken Unknown] Discharge Medications: Refer to the Discharge Home Medication list for PRN reason. - Orders Services needed: Registered Nurse, Certified Reinforcing Metal Worker, Physical Therapy, Occupational Therapy Diet Recommendation: no restrictions on diet Diet Texture: Regular Texture Diet - Labs/Radiology CBC Date: 03/23/17 CMP Date: 03/23/17 - Follow Up Care Current Providers and Referrals: MAT ALBRIGHT [Other] - follow up in 2 weeks
[2017-03-16 17:10] VITALS: BP 101/58; PULSE 85; RESP 17; O2SAT 96
--- NOTE | 2017-03-17 12:57 | GDS ---
[f rep st] DISCHARGE SUMMARY NEW AND ACUTE DIAGNOSES ON THIS ADMISSION: 1. Acute urinary tract infection. 2. Acute on chronic kidney disease with a discharge creatinine of 1.3 without signs of active kidney disease. 3. Hyponatremia. 4. Paroxysmal atrial fibrillation, anticoagulated on Eliquis and stable. 5. Aortic stenosis. 6. Diabetes mellitus. 7. Hypertension. CONSULTATIONS: None. PROCEDURES: 1. Head CT, 03/13, showing moderate atrophy. No hemorrhages, mass effect or definitive acute periphe ral infarction. 2. Abdominopelvic ultrasound showing bilateral nephrolithiasis, no hydronephrosis, and a small postv oid residual. HOSPITAL COURSE: A 76-year-old sent in because of weakness. Problems were cared for in the followin g fashion: 1. Acute on chronic kidney disease. Patient has a known baseline creatinine of 1.3 but was noted to have progressively rising creatinine to approximately 3.0, where it remained stable despite fluid hyd ration. No specific etiology for this rise could be found and she continued to have good urine output . Renal ultrasound was negative for obstruction. She appeared euvolemic. 2. Acute urinary tract infection. It was felt that because of urinalysis patient may have had a urin abraham tract infection although she grew only Cecilia and 3 small colonies of other organisms. She was t reated with 3 days of Rocephin and will be discharged on Levaquin 500 mg daily for 3 days. 3. Aortic stenosis was a known chronic problem and she showed no signs of compromise. 4. Diabetes mellitus. She was placed on SSI coverage and maintained good glucose control throughout the hospitalization, and will be discharged on her usual medications. 5. Hypertension. Her blood pressure was well controlled during the hospitalization on her usual outp atient medication. 6. Paroxysmal atrial fibrillation. She was maintained on Eliquis and had a good rate control during the hospitalization. DISCHARGE MEDICATIONS: Lipitor 20 mg daily, Eliquis 5 mg twice daily, Abilify 10 mg daily, Actos 15 mg daily, Synthroid 125 mcg daily, chlorthalidone 25 mg daily, Coreg 25 mg twice daily, Glucotrol XL 2.5 mg tablets twice daily, Wellbutrin 100 mg daily, Norvasc 10 mg daily, valsartan 320 mg daily, met formin 1000 mg p.o. twice daily, melatonin 3 mg at bedtime, Klor-Con 8 mEq daily, and methylcellulose 500 mg p.o. daily. PLAN: This lady is discharged to the [facility] for rehabilitation. It is pl anned to have a recheck of her renal function in approximately 1 week, at which time, her PCP, Dr. Amy Marin, or the provider at [facility], can evaluate further. Should her creatinine continue to rise or not normalize to a baseline of 1.3, then a nephrology consultation would be appropriate. Also , it is possible we should stop her ARB of valsartan as this may be interfering with her renal functi on, though she is euvolemic at this time. LABORATORY DATA: Laboratories of note at the time of discharge: WBC of 5000, hemoglobin 10.2. Her BN P was normal. Creatinine 1.3 and BUN 38. Microbiology showed no growth on her urine culture. TIME: This discharge required 50 minutes, greater than 50% to certified rehabilitation counselor and coordinate care. /[id number]/MODL
--- NOTE | 2017-03-17 15:33 | ASDISCHSUM ---
Discharge Information Plan Status:SNF Medically Cleared to Leave: Discharge Date:03/16/2017 05:53 PM D/C Disposition:Intermediate Facility ADT D/C Disposition:Intermediate Facility Projected Discharge Date:03/16/2017 05:00 PM Transportation at D/C:Wheelchair Van Discharge Delay Reason: Follow-Up Date:03/16/2017 05:00 PM Discharge Slot: Final Diagnosis: Placement Information Referral Type:*Retirement/SNF Referral ID:[id number] Provider Name:[facility] Address 1:[address] Address 2: City:[place] Selection Factors: State:[place] Patient Contact Information Contact Name:CHRISTIAN Relationship:Friend Address: City: [facility] Phone: State/Zip Code: Email: Financial Information Financial Class: Primary Plan Desc:MEDICARE INPATIENT Primary Plan Number:[id number] Secondary Plan Desc:[facility] [employer] Secondary Plan Number:[id number] Assessment Information [facility] CM Progress Note CM Note CM Note Notes: Patient admitted with weakness -- diagnosed with UTI. Currently on IV abx and fluids. Per PT/OT is weak and not at baseline -- they will continue to work with and assess patient daily. Depending on progress, patient may need HC or SNF at discharge. Spoke with patient who is shocked at how weak this infection has made her. She is hopeful that she will recover enough to be able to go home upon discharge. She requests that CM check in again before making a d/c plan. Date Signed: 03/13/2017 12:03 PM Electronically Signed By:Raegan Stark RN [facility] Progress Note CM Note CM Note Notes: Wednesday03/15/2017 Case Management Note: Met w/patient, informed of acceptance to [facility] facility. Pt in agreement w/placement. Case Management d/c poc: [facility] when medically stable. Due to 3 midnight requirement, pt needs to stay tonight. Case Management to follow. Created By:Raegan Roldan On:03/13/2017 12:03 (IA) VALENTÍN Note Patient admitted with weakness -- diagnosed with UTI. Currently on IV abx and fluids. Per PT/OT is weak and not at baseline -- they will continue to work with and assess patient daily. Depending on progress, patient may need HC or SNF at discharge. Spoke with patient who is shocked at how weak this infection has made her. She is hopeful that she will recover enough to be able to go home upon discharge. She requests that CM check in again before making a d/c plan. Date Signed: 03/15/2017 11:52 AM Electronically Signed By:Nini Ortiz RN [facility] Progress Note CM Note CM Note Notes: Pt will dc today to [facility]. Ita from [facility] said they are ready to accept; their van will pick pt up at 1700. Met w/pt who is in agreement w/dc poc and has contacted her family. Orders/info faxed, conf rec'd from Ita. D/W RN who will call report. Date Signed: 03/16/2017 05:00 PM Electronically Signed By:Dalia Rivera RN Intervention Information Intervention Type:*MCCRAY-Signed Date of Service:03/12/2017 09:39 AM Patient Type:Observation Staff Member:Ariadna Norton Hours: Discipline: Severity: Comment: Intervention Type:*IM-Signed Date of Service:03/16/2017 10:11 AM Patient Type:Inpatient Staff Member:Ariadna Norton Hours: Discipline: Severity: Comment:
== END 2017-03-16 17:53 | DRG 690 ==
LOC: EDBD 02:12 → F2W 06:08 → OBSVTOIN 03-13 11:25
PROVIDERS: ADMIT Internal Medicine; ATTEND Internal Medicine
DX: N39.0 Urinary tract infection, site not specified (principal); N17.9 Acute kidney failure, unspecified; E87.1 Hypo-osmolality and hyponatremia; I12.9 Hypertensive chronic kidney disease with stage 1 through stage 4 chronic kidney disease, or unspecified chronic kidney disease; N18.9 Chronic kidney disease, unspecified; I48.0 Paroxysmal atrial fibrillation; E11.9 Type 2 diabetes mellitus without complications; I35.0 Nonrheumatic aortic (valve) stenosis; E78.5 Hyperlipidemia, unspecified; Z87.891 Personal history of nicotine dependence
CPT/HCPCS: 97110-GP; 97116-GP; 97161-GP; 97166-GO; 97535-GO; G0378; G8978-GP-CJ; G8979-GP-CI; G8987-GO-CK; G8988-GO-CI; J0696